=== PATIENT | male | born 1990 | race Caucasian/White ===

== ENCOUNTER 2022-10-20 19:58 | Emergency (ER) | payer OTHER ==
[~2022-10-20] VITALS: Ht 185.4 cm; Wt 118.2 kg
[2022-10-20] MEDS ORDERED: HYDROcodone/acetaminophen 10/325mg tab PO ONE (20:20)
[2022-10-21 00:50] VITALS: BP 121/80
== END 2022-10-21 00:51 | disposition home or self-care (01) ==
LOC: ER 19:59
DX: S82.891D Other fracture of right lower leg, subsequent encounter for closed fracture with routine healing (principal); X58.XXXD Exposure to other specified factors, subsequent encounter
CPT/HCPCS: 29505; 29515; 99283